=== PATIENT | female | born 1985 | race Caucasian/White ===

== ENCOUNTER 2020-02-29 07:55 | Emergency (ER) | payer OTHER ==
[~2020-02-29] VITALS: Ht 180.3 cm; Wt 70.3 kg
[2020-02-29 08:00] VITALS: BP 131/68
--- NOTE | 2020-02-29 08:56 | NUR ---
Patient discharged to home in stable condition. Written and verbal after care instructions given. Patient verbalizes understanding of instruction.
== END 2020-02-29 08:58 | disposition home or self-care (01) ==
LOC: ER 08:05
DX: B35.4 Tinea corporis (principal)

== ENCOUNTER 2020-03-02 05:30 | Emergency (ER) | payer OTHER ==
[~2020-03-02] VITALS: Ht 180.3 cm; Wt 70.3 kg
--- NOTE | 2020-03-02 05:31 | NUR ---
BIBSELF C/O CIRCULAR RASHES BILATERAL UPPER AND LOWER EXTREMITIES. ALSO NOTED BILATERAL EAR AND BILATERAL EYE SWELLING, WORSE ON L EYE. PT UNABLE TO OPEN L EYE. PT ALSO C/O THROAT IRRITATION, O2 SAT 100% ROOM AIR. PT AAOX4. VITAL SIGNS STABLE. RESPIRATIONS EVEN AND UNLABORED. SKIN WARM AND INTACT. AMBULATORY WITH STEADY GAIT. NO ACUTE DISTRESS NOTED AT THIS TIME. PLACED IN GOWN AND ON MONITOR, WILL CONTINUE TO MONITOR
--- NOTE | 2020-03-02 05:50 | NUR ---
DR. ROMERO AT BEDSIDE FOR EVALUATION
[2020-03-02] MEDS ORDERED: diphenhydrAMINE HCL 50 MG/ML VIAL ONE (05:59)
[2020-03-02] MEDS ORDERED: methylPREDNISolone SOD SUCC 125 MG/2ML VIAL ONE (05:59)
[2020-03-02] MEDS ORDERED: diphenhydrAMINE HCL 50 MG/ML VIAL IV ONE (06:00)
[2020-03-02] MEDS ORDERED: methylPREDNISolone SOD SUCC 125 MG/2ML VIAL IV ONE (06:00)
--- NOTE | 2020-03-02 06:07 | NUR ---
PT MEDICATED ORDERED.
--- NOTE | 2020-03-02 06:31 | NUR ---
Patient discharged to home in stable condition. Written and verbal after care instructions given. Patient verbalizes understanding of instruction.IV removed. Catheter intact and site benign. Pressure and 4x4 applied to site. No bleeding noted.Pt ambulatory with a steady gait
[2020-03-02 06:32] VITALS: BP 103/65
== END 2020-03-02 06:32 | disposition home or self-care (01) ==
LOC: ER 05:31
DX: L30.9 Dermatitis, unspecified (principal)
CPT/HCPCS: 96374; 96375; 99284; J1200; J2930